=== PATIENT | male | born 1960 | race Caucasian/White ===

== ENCOUNTER 2017-07-24 10:30 | Emergency (ER) | payer BC, OTHER ==
[2017-07-24 10:37] VITALS: BP 128/83; PULSE 77; RESP 17; TEMP 97.7; O2SAT 98
[2017-07-24] MEDS ORDERED: TDAP ADULT 0.5 ML INJ (BOOSTRIX) IM ONE (10:50)
[2017-07-24] MEDS ORDERED: CEPHALEXIN 500 MG CAP PO ONE (10:57)
--- NOTE | 2017-07-24 11:52 | EDPHY ---
H & P Stated Complaint: avulsion of skin l index finger/cut with sample tester grinder Time Seen by Provider: 07/24/17 10:42 HPI/ROS: Chief complaint: Left pointer finger laceration History of present illness: 57-year-old male presents to the emergency department for evaluation of left pointer finger laceration. Just prior to arrival he was using a grinding machine when it struck the top of his left pointer finger. He sustained a laceration at that time. There has been minimal pain. Bleeding has been controlled with a dressing. States he can still feel normally in the finger. He can move it well. No other injuries reported. He is unsure of his last tetanus shot. - Personal History Current Tetanus/Diphtheria Vaccine: Unsure - Medical/Surgical History Hx Asthma: No Hx Chronic Respiratory Disease: No Hx Diabetes: No Hx Cardiac Disease: No Hx Renal Disease: No Hx Cirrhosis: No Hx Alcoholism: No Hx HIV/AIDS: No Hx Splenectomy or Spleen Trauma: No Other PMH: ortho injuries - Social History Smoking Status: Current every day smoker - Physical Exam Exam: General: Alert, nontoxic Skin: There is a 5 cm laceration to the extensor surface of the left pointer finger. Significant skin defect distally. No foreign bodies noted. Musculoskeletal: Patient is flexing and extending his left pointer finger in the DIPJ, PIP and MCP joint well. I am able to visualize extensor tendon mechanism I do not appreciate significant compromise. Vascular: Capillary refill brisk in the left pointer finger Neurologic: Sensation intact with light touch but decreased 2 point discrimination left pointer finger. Constitutional: Initial Vital Signs Temperature (C) 36.5 C 07/24/17 10:35 Heart Rate 77 07/24/17 10:35 Respiratory Rate 17 07/24/17 10:35 Blood Pressure 128/83 H 07/24/17 10:35 O2 Sat (%) 98 07/24/17 10:35 O2 Delivery Mode Room Air Allergies/Adverse Reactions: No Known Allergies Allergy (Unverified 07/24/17 10:34) Home Medications: Medication Instructions Recorded Cephalexin [Keflex (*)] 500 mg PO QID 7 Days 07/24/17 Medical Decision Making - Diagnostics Imaging Results: Imaging Impressions Finger X-Ray 07/24/17 10:47 Impression: No acute osseous findings. Imaging: I viewed and interpreted images myself Procedures: Procedure: Laceration repair. Verbal consent was obtained from the patient. The 5 cm laceration on the left pointer finger was anesthetized in the usual fashion. The wound was irrigated, draped and explored to its base with a gloved finger. There were no deep structures involved. No tendon injury was identified. The wound was repaired with 5 0 Ethilon, 6 simple interrupted sutures to loosely approximate the wound. The wound repair was simple. The procedure was performed by myself. ED Course/Re-evaluation: Patient seen under the supervision of my secondary supervising physician Dr. Genet Bass. Patient presents for a left index finger injury. Good vascular supply. Slightly decreased sensation. He is moving it well. X-rays negative. Wound has been copiously irrigated and loosely approximated. He maintains a 1 cm x 1 cm skin defect over the extensor tendon mechanism. This is been dressed with Xeroform and the finger has been fully dressed and splinted. Patient's tetanus is updated. He is started on Keflex. I have discussed the case with on-call Hand surgery, Dr. Jillian Escoto. He is comfortable with patient being discharged home. Patient will follow up in his clinic. Referral information is given. Return precautions are given. Patient voiced understanding and agreement with plan. Differential Diagnosis: Included but not limited to laceration, tissue defect, deep structure injury, foreign body contamination - Data Points Medications Given: Discontinued Medications Cephalexin HCl (Keflex) 500 mg PO EDNOW ONE PRN Reason: Protocol Stop: 07/24/17 10:58 Last Admin: 07/24/17 11:02 Dose: 500 mg Diphtheria/Tetanus/Acell Pertussis (Boostrix) 0.5 ml IM .ONCE ONE Stop: 07/24/17 10:51 Last Admin: 07/24/17 10:53 Dose: 0.5 ml Departure - Departure Disposition: Home, Routine, Self-Care Clinical Impression: Laceration Condition: Good Instructions: Care For Your Stitches (ED), Laceration (ED), Acute Wounds (ED) Additional Instructions: Follow-up with a hand doctor this week for recheck Take antibiotics as prescribed until finished even feeling better If symptoms worsen or new symptoms develop return to the emergency room for recheck Referrals: NONE *PRIMARY CARE P,. [Primary Care Provider] - As per Instructions Jillian Escoto MD [Medical Doctor] - As per Instructions Prescriptions: Cephalexin [Keflex (*)] 500 mg PO QID 7 Days
== END 2017-07-24 12:00 | disposition home or self-care (01) ==
PROC: 0HQGXZZ Repair Left Hand Skin, External Approach (ICD-10-PCS; principal; 2017-07-24)
DX: S61.211A Laceration without foreign body of left index finger without damage to nail, initial encounter (principal); F17.200 Nicotine dependence, unspecified, uncomplicated; Z23 Encounter for immunization; W22.8XXA Striking against or struck by other objects, initial encounter